=== PATIENT | female | born 1965 | race Caucasian/White ===

== ENCOUNTER → 2017-12-28 | Outpatient (CLI) | payer BC ==
[~2017-12-28] MED LIST: IOPAMIDOL 370 MG/ML 200 ML INFUS..BTL INJ ONE; SODIUM CHLORIDE 0.9% 50ML 50 ML ONE
--- NOTE | 2017-12-29 05:24 | Diagnostic Imaging Report ---
EXAM: CT ABDOMEN W DATE: 12/28/2017 4:48 PM INDICATION: Abdominal pain, right upper quadrant COMPARISON: None TECHNIQUE: The abdomen was scanned using a multidetector helical scanner. Coronal and sagittal reformations were obtained. CT low dose techniques were utilized, as applicable. IV Contrast: 100 ml Isovue 300/370 FINDINGS: LOWER THORAX: No consolidations LIVER/BILIARY: Incidental subcentimeter right liver cyst. No ductal dilatation. GALLBLADDER: Unremarkable SPLEEN: Unremarkable PANCREAS: Unremarkable ADRENALS: No nodules KIDNEYS: Symmetric renal enhancement. Subcentimeter left inferior renal hypodensity is too small to characterize though likely a cyst.. No hydronephrosis. GI TRACT: No visualized wall thickening or obstruction. VESSELS: Unremarkable PERITONEUM/RETROPERITONEUM: No free air or fluid LYMPH NODES: No lymphadenopathy SOFT TISSUES: Partially imaged bilateral breast implants. BONES: No suspicious bone lesions. IMPRESSION: No acute abnormality. Signed by: Dr Katlyn Vance MD on 12/29/2017 4:38 AM
== END ==
LOC: CT 16:23
PROVIDERS: ATTEND Family Medicine
DX: R10.11 Right upper quadrant pain (principal)
CPT/HCPCS: 74160; Q9967